=== PATIENT | male | born 1950 | race African-American/Black ===

== ENCOUNTER 2019-11-05 09:31 | Emergency (ER) | payer MEDICARE, SELFPAY ==
[2019-11-05] VITALS (24 sets, daily range): BP systolic 148–197; BP diastolic 79–93; PULSE 45–67; RESP 8–20; TEMP 36.2; O2SAT 94–100
--- NOTE | ~2019-11-05 | CT_ITS ---
EXAMINATION: CT abdomen pelvis w con DATE: 11/05/2019 11:23 INDICATION: Upper abdominal pain. TECHNIQUE: Computed tomography (CT) of the abdomen and pelvis was performed with 100 mL Omnipaque 350 intravenous contrast. Automated exposure control and iterative reconstruction technique were employe d. The dose-length product was 612.81 mGy-cm. COMPARISON: None. FINDINGS: The visualized portions of the lung bases demonstrate mild atelectasis. No pleural effusion . The heart size is normal. No pericardial effusion. The liver, gallbladder, spleen, pancreas, adrena l glands, and kidneys are normal. The prostate is mildly enlarged. There are no dilated loops of rob l. The appendix is normal. There are no pathologically enlarged lymph nodes. There is no free intrape ritoneal fluid. There is moderate lumbar spondylosis. IMPRESSION: 1. No etiology for the patient's symptoms. Reviewed, dictated and finalized at location A.
--- NOTE | ~2019-11-05 | XR_ITS ---
XR chest 1V portable DATE: 11/05/2019 09:58 INDICATION: Chest pain for 2 weeks TECHNIQUE: Portable AP chest on 11/05/2019 at 0957 hours COMPARISON: None FINDINGS: Heart size is normal. Mild aortic unfolding. No hilar or mediastinal enlargement. No pulmon raj infiltrate or consolidation, pleural effusion or pulmonary vascular congestion or pneumothorax. IMPRESSION: No active cardiopulmonary disease Reviewed, dictated and finalized at location A.
--- NOTE | 2019-11-05 09:42 | ECG_ITS ---
Measurements Intervals [place] Rate: 63 P: 13 SD: 186 QRS: -46 QRSD: 160 T: 17 QT: 455 QTc: 467 Interpretive Statements SINUS RHYTHM RIGHT BUNDLE BRANCH BLOCK LEFT ANTERIOR FASCICULAR BLOCK POSSIBLE LEFT VENTRICULAR HYPERTROPHY BASELINE ARTIFACT- I, II, AVR, AVF, V1-V3 ABNORMAL ECG Electronically Signed On 11-05-2019 9:56:40 CDT by Cesar Camacho D.O.
--- NOTE | 2019-11-05 09:42 | ED.CHESTPAIN ---
HPI - Chest Pain General Chief Complaint: Unspecified Stated Complaint: muscle pains for a couple of weeks Time Seen by Provider: 11/05/19 09:35 Source: patient and RN notes reviewed Mode of arrival: ambulatory Limitations: no limitations History of Present Illness HPI narrative: Pt is a 69 y/o male who presents to the ED with c/o diffuse chest pain starting roughly 2 weeks ago. He notes that he has had pain in his diffuse chest, low back, and upper ABD for the past 1-2 weeks. Pt states that his CP, only occurs with inhalation, and notes that his low back pain is worsened with movement. He states that his pain has been constant over the past week. Pt denies any cough, fever, or chills. He notes that he hasn't taken any pain medications for his symptoms today. Patient states he only has the pain with movement and states it currently laying in bed he has no current pain patient denies having any shortness of breath MD complaint: chest pain Onset (ago): week(s) (2) Pain location: other (diffuse chest) Exacerbating factors: other (exhalation) Associated symptoms: other (low back pain; upper ABD pain) Treatment prior to arrival: none Related Data Home Medications Medication Instructions Recorded Confirmed aspirin [Aspir-81] 11/05/19 atorvastatin 40 mg PO DAILY 11/05/19 carvedilol 12.5 mg PO BID 11/05/19 empagliflozin [Jardiance] 10 mg PO DAILY 11/05/19 spironolacton-hydrochlorothiaz 1 tablet PO DAILY 11/05/19 Allergies Allergy/AdvReac Type Severity Reaction Status Date / Time No Known Allergies Allergy Verified 11/05/19 09:47 Review of Systems Review of Systems: All systems reviewed & are unremarkable except as noted in HPI and below Constitutional: Constitutional: Denies chills and Denies fever(s) Cardiovascular: Cardiovascular: Reports chest pain (diffuse) Respiratory: Respiratory: Denies cough Gastrointestinal: Gastrointestinal: Reports abdominal pain (upper ABD pain) Musculoskeletal: Musculoskeletal: Reports back pain (low back pain) [facility] Past Medical History Medical History Healthy male adult Surgical History Surgical History Surgical history unknown Social History Social History Smoking status: Unknown if ever smoked Gender identity (if verbalized by the patient): Male Exam Narrative: Exam Narrative: APPEARANCE: No acute distress, nontoxic, resting in bed EYES: EOMI HEENT: Normocephalic, atraumatic, OMM RESPIRATORY: No respiratory distress Clear to auscultation bilaterally with no rhonchi wheezing or rales. CARDIOVASCULAR: Regular rate and rhythm without murmurs rubs or gallops. Chest: No tenderness to palpation of the chest wall, no pain at rest, pain only with deep inspiration ABDOMINAL: Soft, nondistended, tender palpation epigastric and left upper quadrant, no tenderness right upper quadrant, right lower quadrant left lower quadrant, no rebound or guarding MUSCULOSKELETAl: Moves all extremities. No clubbing, cyanosis or edema. Back: No midline thoracic lumbar tenderness palpation, tender palpation bilateral paravertebral muscles L3-5, pain increased with rotation of the torso no pain at rest NEURO: Awake and alert. Following commands, speech normal, no focal deficits muscle strength 5 out of 5 bilateral upper and lower extremities SKIN:: Warm, dry. No rashes lesions or abrasions PSYCHIATRIC: Normal affect/mood, Course Course Emergency Course: Patient states all pain has resolved following Tylenol administration Patient states that they are feeling much better at this time. States abdominal pain has resolved. Repeat abdominal exam shows the patient's abdomen to be soft and nontender. Discussed with patient results of workup and diagnosis. Discussed need for follow-up with primary care physician, reasons to return to the emergency department in proper
[2019-11-05 09:59] LABS: Basophils Absolute Auto 0.1 K/mm3 (0.0-0.1); Basophils Percent Auto 0.9 % (0.2-1.2); Eosinophils Absolute Auto 0.3 K/mm3 (0-0.3); Eosinophils Percent Auto 4.7 % (0-4.4); Hematocrit 46.1 % (42.0-52.0); Hemoglobin 15.1 g/dL (14.0-18.0); Immature Granulocyte Absolute 0.01 K/mm3 (0.00-0.031); Immature Granulocyte Percent A 0.2 % (0-0.5); Immature Platelet Fraction Pct 6.2 % (0.9-11.2); Lymphocytes Percent Auto 45.6 % (18.3-44.2); Mean Corpuscular HGB Conc 32.8 g/dl (32-36); Mean Corpuscular Hemoglobin 28.5 pg (26-34); Mean Corpuscular Volume 87.1 fl (80-100); Mean Platelet Volume 12.4 fl (7.4-10.4); Monocytes Absolute Auto 0.5 K/mm3 (0.1-0.6); Monocytes Percent Auto 9.3 % (2.6-8.5); Neutrophils Absolute Auto 2.2 K/mm3 (1.3-6.7); Neutrophils Percent Auto 39.3 % (45.5-73.1); Platelet Count Result 127 k/mm3 (150-375); Red Blood Count 5.29 M/mm3 (4.6-6.20); Red Cell Distribution Width 13.1 % (11.5-14.5); White Blood Count 5.5 K/mm3 (4.5-10.0)
[2019-11-05 10:10] LABS: Prothrombin Time 13.3 Seconds (11.1-14.7)
[2019-11-05 10:11] LABS: Partial Thromboplastin Time 30.8 SECONDS (22.3-36.8)
[2019-11-05 10:20] LABS: Add Urine Microscopic? YES; Appearance Urine Clear (Clear); Bilirubin Urine Negative (Negative); Blood Urine Negative (Negative); Color Urine Yellow (Yellow); Glucose Urine UA 3+ mg/dL (Negative); Ketones Urine Negative (Negative); Leukocyte Esterase Ur Negative LEU/UL (Negative); Nitrate Urine Negative (Negative); Protein Urine Negative (Negative); Urobilinogen Urine Negative mg/dL (<2.0); WBC Urine 0-3 /hpf
[2019-11-05 10:23] LABS: Specific Grav Ur 1.031 (1.001-1.035)
[2019-11-05 10:58] LABS: Alanine Aminotransferase 18 U/L (4-50); Albumin Level 4.5 g/dL (3.5-5.1); Alkaline Phosphatase 73 U/L (38-126); Aspartate Amino Transferase 22 U/L (17-59); Bilirubin,Total 0.5 mg/dL (0.2-1.3); Blood Urea Nitrogen 20 mg/dL (9-20); Calcium 9.5 mg/dL (8.4-10.2); Carbon Dioxide 32 mmol/L (22-30); Chloride 101 mmol/L (98-107); Estimated CRCL calculation 50 ml/min; Estimated Glomerular Filt Rate > 60; Glucose 188 mg/dL (75-110); Lipase 71 U/L (23-300); Potassium 4.2 mmol/L (3.4-5.0); Sodium 139 mmol/L (137-145)
[2019-11-05 11:05] LABS: Troponin I < 0.012 ng/mL (0.000-0.034)
--- NOTE | 2019-11-05 11:48 | PC.NURSE ---
assuming care of pt from Vira WINTER. Pt is A&Ox4. Pt resting with eyes closed. Pt has no current complaints. Pt has call light in reach
--- NOTE | 2019-11-05 12:38 | PC.NURSE ---
Pt resting in bed with eyes closed and even rise and fall of chest
[2019-11-05 13:38] LABS: Troponin I < 0.012 ng/mL (0.000-0.034)
== END 2019-11-05 14:30 | disposition home or self-care (01) ==
PROVIDERS: Emergency Provider Emergency Medicine
DX: R10.13 Epigastric pain (principal); M54.5 Low back pain; R07.89 Other chest pain; I45.2 Bifascicular block; R94.31 Abnormal electrocardiogram [ECG] [EKG]
CPT/HCPCS: 36415; 71045; 74177; 80053; 81001; 83690; 84484; 85025; 85055; 85610; 85730; 93005; 96365; 99284; J0131; Q9967

== ENCOUNTER 2020-06-23 09:25 | Emergency (ER) | payer MEDICARE, SELFPAY ==
[2020-06-23] VITALS (9 sets, daily range): BP systolic 115–187; BP diastolic 61–97; PULSE 62–75; RESP 14–21; TEMP 38.6; O2SAT 95–98
--- NOTE | ~2020-06-23 | XR_ITS ---
EXAMINATION: XR chest 1V portable 06/23/2020 10:06 INDICATION: CovidSymptoms PROCEDURE: AP portable chest COMPARISON: 11/05/2019 FINDINGS: The lungs are clear. The cardiomediastinal silhouette is within normal limits. There are no pleural effusions. There is no pneumothorax suspected. IMPRESSION: 1: NO ACUTE CARDIOPULMONARY DISEASE. Reviewed, dictated and finalized at location A. HOUSE ADMINISTRATIVE ASSISTANT
--- NOTE | 2020-06-23 09:36 | ECG_ITS ---
Measurements Intervals [place] Rate: 70 P: 26 MO: 203 QRS: -57 QRSD: 146 T: 12 QT: 432 QTc: 468 Interpretive Statements SINUS RHYTHM BORDERLINE AV CONDUCTION DELAY RIGHT BUNDLE BRANCH BLOCK MINIMAL Q WAVES- HIGH LATERAL LEADS ABNORMAL ECG Electronically Signed On 06-23-2020 9:41:41 DOVETAILER by Cesar Camacho D.O.
[2020-06-23 09:51] LABS: Basophils Percent Auto 0.2 % (0.2-1.2); Eosinophils Percent Auto 0.2 % (0-4.4); Hematocrit 45.2 % (42.0-52.0); Hemoglobin 15.3 g/dL (14.0-18.0); Immature Granulocyte Absolute 0.01 K/mm3 (0.00-0.031); Immature Granulocyte Percent A 0.2 % (0-0.5); Lymphocytes Percent Auto 37.8 % (18.3-44.2); Mean Corpuscular HGB Conc 33.8 g/dl (32-36); Mean Corpuscular Hemoglobin 29.3 pg (26-34); Mean Corpuscular Volume 86.6 fl (80-100); Mean Platelet Volume 12.1 fl (7.4-10.4); Monocytes Absolute Auto 0.4 K/mm3 (0.1-0.6); Monocytes Percent Auto 9.9 % (2.6-8.5); Neutrophils Absolute Auto 2.2 K/mm3 (1.3-6.7); Neutrophils Percent Auto 51.7 % (45.5-73.1); Platelet Count Result 80 k/mm3 (150-375); Red Blood Count 5.22 M/mm3 (4.6-6.20); Red Cell Distribution Width 12.5 % (11.5-14.5); White Blood Count 4.2 K/mm3 (4.5-10.0)
[2020-06-23] MEDS: SODIUM CHLORIDE 0.9% IV 500 ML 999 ML IV CONT ×2 (09:59→11:01)
--- NOTE | 2020-06-23 10:01 | ED.ABDPAIN ---
HPI - Abdominal Pain General Chief Complaint: Abdominal Pain Stated Complaint: weakness Time Seen by Provider: 06/23/20 09:28 Source: patient Mode of arrival: ambulatory Limitations: no limitations History of Present Illness HPI narrative: This is a 70-year-old male that presents to the emergency department for generalized weakness. Reports over the last 5 days he has had nausea, intermittent lower abdominal discomfort, and feels weak and dizzy. Also reports nothing tastes right. Reports loss of smell as well. No known sick contacts. He does live with his grandson. Is febrile in the ED, but does not note any fevers at home. Does report some congestion and cough. Denies chest pain, shortness of breath, vomiting, diarrhea, or dysuria. Related Data Home Medications Medication Instructions Recorded Confirmed aspirin [Aspir-81] 11/05/19 atorvastatin 40 mg PO DAILY 11/05/19 carvedilol 12.5 mg PO BID 11/05/19 empagliflozin [Jardiance] 10 mg PO DAILY 11/05/19 valsartan 06/23/20 Allergies Allergy/AdvReac Type Severity Reaction Status Date / Time No Known Allergies Allergy Verified 06/23/20 09:33 Review of Systems Review of Systems: Narrative: CONSTITUTIONAL: Reports fever ENT: Reports rhinorrhea, congestion CARDIOVASCULAR: Denies chest pain, or edema. RESPIRATORY: Reports cough. Denies dyspnea. GASTROINTESTINAL: Reports abdominal pain, nausea. Denies vomiting, or diarrhea. GENITOURINARY: Denies dysuria NEUROLOGIC: Reports generalized weakness. All systems reviewed & are unremarkable except as noted in HPI and below PMFSH Past Medical History Medical History (Updated 06/23/20 @ 13:26 by Yarelis Rodríguez PA-C) History of diabetes mellitus History of hyperlipidemia History of hypertension Surgical History Surgical History Surgical history unknown Social History Social History Smoking status: Unknown if ever smoked Gender identity (if verbalized by the patient): Male Exam Narrative: Exam Narrative: GENERAL: Well-appearing, well-nourished, and in no acute distress. HEAD: Normocephalic, atraumatic. EYES: PERRLA and EOMI. ENT: Nares clear, no rhinorrhea or epistaxis. Mucous membranes moist. Oropharynx without tonsillar hypertrophy exudate or other lesions. Bilateral TMs pearly baltazar non-bulging NECK: Supple. No adenopathy or masses. CHEST: Clear to auscultation. No respiratory distress. No wheezes rales or rhonchi HEART: Regular rate and rhythm. No murmur heard. Normal peripheral pulses. ABDOMEN: Soft, nontender, nondistended, normal active bowel sounds. No CVA tenderness EXTREMITIES: Normal range of motion. No edema. SKIN: Warm, dry, no rash. NEURO: No focal deficits. Alert and oriented x3. CN II-XII grossly intact PSYCH: Normal mood and affect Course Consultations Consultation #1: Spoke with Dr. Metcalf about patient and workup who will follow up in clinic Date: 06/23/20 Time: 13:03 Vital Signs Vital signs: Vital Signs Temperature 101.5 F H 06/23/20 09:28 Pulse Rate 74 06/23/20 09:28 Respiratory Rate 20 06/23/20 09:28 Blood Pressure 187/87 H 06/23/20 09:28 Pulse Oximetry 96 06/23/20 09:28 Temperature 101.5 F H 06/23/20 09:28 Pulse Rate 63 06/23/20 12:46 Respiratory Rate 14 06/23/20 12:46 Blood Pressure 140/71 06/23/20 12:46 Pulse Oximetry 95 06/23/20 12:46 MDM - Abdominal Pain MDM Narrative Medical decision making narrative: This is a 70-year-old male that presents the emergency department for cold symptoms. Febrile upon arrival. He was also orthostatic. Patient given IV fluids and antipyretic in the ED with relief. CBC is without leukocytosis. Patient is thrombocytopenic with platelets of 80. Lactic acid is normal. Metabolic panel is without concerning findings. UA shows possible mild dehydration. No ketones in the urine though and patient does not carrion
[2020-06-23 10:04] LABS: Add Urine Microscopic? YES; Appearance Urine Clear (Clear); Bilirubin Urine Negative (Negative); Blood Urine 2+ (Negative); Color Urine Yellow (Yellow); Glucose Urine UA 3+ mg/dL (Negative); Ketones Urine Negative (Negative); Leukocyte Esterase Ur Negative LEU/UL (Negative); Mucus Urine Rare /lpf; Nitrate Urine Negative (Negative); Protein Urine 3+ mg/dL (Negative); Squamous Epithelial Cell Urine Rare /hpf (Few); WBC Urine 0-3 /hpf
[2020-06-23 10:05] LABS: Alanine Aminotransferase 29 U/L (4-50); Albumin Level 3.9 g/dL (3.5-5.1); Alkaline Phosphatase 60 U/L (38-126); Anion Gap 6 mmol/L (8-16); Aspartate Amino Transferase 68 U/L (17-59); Bilirubin,Total 0.7 mg/dL (0.2-1.3); Blood Urea Nitrogen 18 mg/dL (9-20); CRP 3.5 mg/dL (<1.0); Carbon Dioxide 31 mmol/L (22-30); Chloride 99 mmol/L (98-107); Estimated CRCL calculation 47 ml/min; Estimated Glomerular Filt Rate 56; Glucose 172 mg/dL (75-110); Lipase 260 U/L (23-300); Potassium 3.9 mmol/L (3.4-5.0); Sodium 136 mmol/L (137-145)
[2020-06-23 10:06] LABS: Prothrombin Time 13.8 Seconds (11.1-14.7)
[2020-06-23 10:08] LABS: Specific Grav Ur 1.037 (1.001-1.035)
[2020-06-23 10:36] LABS: Monoscreen Negative (Negative); Negative Monotest Control Negative (Negative); Positive Monotest Control Positive (Positive)
[2020-06-23 21:15] LABS: SARS-CoV-2 RNA PCR Positive
== END 2020-06-23 13:49 | disposition home or self-care (01) ==
PROVIDERS: Physician Assistant; Emergency Provider Emergency Medicine
DX: U07.1 COVID-19 (principal); D69.6 Thrombocytopenia, unspecified; E11.9 Type 2 diabetes mellitus without complications; E78.5 Hyperlipidemia, unspecified; I10 Essential (primary) hypertension; Z79.82 Long term (current) use of aspirin; Z79.84 Long term (current) use of oral hypoglycemic drugs; R94.31 Abnormal electrocardiogram [ECG] [EKG]
CPT/HCPCS: 36415; 71045; 80053; 81001; 83605; 83690; 85025; 85610; 85730; 86140; 86308; 87635; 87804; 93005; 96361; 96365; 99284; C9803; J0131; J7040; U0003

== ENCOUNTER 2020-09-27 16:40 | Outpatient (CLI) | payer MEDICARE, SELFPAY ==
[2020-09-27 17:41] LABS: Basophils Percent Auto 0.6 % (0.2-1.2); Eosinophils Absolute Auto 0.3 K/mm3 (0-0.3); Eosinophils Percent Auto 3.9 % (0-4.4); Hematocrit 40.6 % (42.0-52.0); Hemoglobin 13.4 g/dL (14.0-18.0); Immature Granulocyte Absolute 0.02 K/mm3 (0.00-0.031); Immature Granulocyte Percent A 0.3 % (0-0.5); Immature Platelet Fraction Pct 7.8 % (0.9-11.2); Lymphocytes Absolute Auto 2.74 K/mm3 (0.9-3.2); Lymphocytes Percent Auto 43.2 % (18.3-44.2); Mean Corpuscular Hemoglobin 28.6 pg (26-34); Mean Corpuscular Volume 86.8 fl (80-100); Mean Platelet Volume 11.5 fl (7.4-10.4); Monocytes Absolute Auto 0.5 K/mm3 (0.1-0.6); Neutrophils Absolute Auto 2.8 K/mm3 (1.3-6.7); Platelet Count Result 138 k/mm3 (150-375); Red Blood Count 4.68 M/mm3 (4.6-6.20); Red Cell Distribution Width 13.2 % (11.5-14.5); Reticulocyte Hemoglobin Conten 34.4 pg (28.2-35.7); Reticulocyte Percent 1.49 % (0.7-4.3); Reticulocytes Absolute 0.07 B/L (32.2-175.7); White Blood Count 6.3 K/mm3 (4.5-10.0)
[2020-09-27 17:49] LABS: Alanine Aminotransferase 21 U/L (4-50); Albumin Level 4.2 g/dL (3.5-5.1); Alkaline Phosphatase 80 U/L (38-126); Anion Gap 2 mmol/L (8-16); Aspartate Amino Transferase 23 U/L (17-59); Bilirubin,Total 0.4 mg/dL (0.2-1.3); Blood Urea Nitrogen 15 mg/dL (9-20); Calcium 9.1 mg/dL (8.4-10.2); Carbon Dioxide 32 mmol/L (22-30); Chloride 103 mmol/L (98-107); Estimated Glomerular Filt Rate > 60; Glucose 225 mg/dL (75-110); Lactate Dehydrogenase 498 U/L (313-618); Potassium 4.4 mmol/L (3.4-5.0); Sodium 137 mmol/L (137-145)
[2020-09-27 18:32] LABS: Iron 88 ug/dL (49-181)
[2020-09-27 18:41] LABS: Percent Iron Saturation 33 % (20-50)
[2020-09-27 18:55] LABS: Folic Acid 8.8 ng/mL (2.76->20)
== END 2020-09-27 16:41 | disposition home or self-care (01) ==
LOC: ANHLAB 16:47
PROVIDERS: Visit Provider Internal Medicine Hematology & Oncology
DX: D69.59 Other secondary thrombocytopenia (principal)
CPT/HCPCS: 36415; 80053; 82607; 82728; 82746; 83540; 83550; 83615; 85025; 85046; 85055; 86022

== ENCOUNTER 2020-10-03 08:18 | Outpatient (CLI) | payer MEDICARE, SELFPAY ==
--- NOTE | ~2020-10-03 | US_ITS ---
EXAMINATION: US abdomen complete EXAM DATE: 10/03/2020 08:47 INDICATION: Secondary thrombocytopenia. TECHNIQUE: Multiple grayscale and Doppler images of the complete abdomen were obtained (by a technolo gist who performed the scan) and subsequently reviewed. There is no prior study for comparison. FINDINGS: The abdominal aorta is normal in caliber. Visualized portion IVC is patent. The pancreatic head a nd body are normal in appearance. The pancreatic tail is not visualized. The liver has normal echogenicity and contour. There are no focal liver lesions identified. There is no evidence of intrahepatic biliary duct dilation. Portal venous flow was seen in the hepatopedal , normal direction and has normal Doppler waveform. Common bile duct measures 4 mm, which is normal. The gallbladder wall is normal in thickness, with ex pected amount of distention. No sonographic evidence of pericholecystic fluid. There is no cholelit hiases. Technologist performing exam reports patient did not demonstrate sonographic Hanson's sign. Please note that this sign is less reliable in patients who have received pain medication. Right kidney: There is normal contour and echogenicity. It measures 10.5 x 5.5 x 4.0 centimeters. There are no focal renal lesions identified. There is no hydronephrosis. Left kidney: There is normal contour and echogenicity. It measures 10.5 x 5.7 x 4.5 centimeters. T here are no focal renal lesions identified. There is no hydronephrosis. The spleen measures 10.5 centimeters and is morphologically normal. IMPRESSION: 1. Normal spleen size. Reviewed, dictated and finalized at location A. ER COVERSTITCH IMPRESSION: 1. Normal spleen size.
== END 2020-10-03 08:19 | disposition home or self-care (01) ==
PROVIDERS: PCP Emergency Medicine; Visit Provider Internal Medicine Hematology & Oncology
DX: D69.59 Other secondary thrombocytopenia (principal)
CPT/HCPCS: 76700